=== PATIENT | female | born 1950 | race Caucasian/White ===

== ENCOUNTER 2023-03-29 13:03 | Emergency (ER) | payer MEDICARE, SELFPAY ==
[2023-03-29 13:13] VITALS: BP 125/70; PULSE 82; RESP 16; TEMP 35.9; O2SAT 96
--- NOTE | 2023-03-29 13:21 | ED.GENADULT ---
HPI - General Adult General Chief complaint: Dizziness Stated complaint: Dizziness/Diarrhea Source: patient and RN notes reviewed History of Present Illness HPI narrative: 73 yo F presents to urgent care with multiple medical complaints. Pt states she has had multiple BMs today, denies diarrhea, but reports frequent BMs today. Pt reports being depressed and possibly anxious due to an upcoming move in April. Pt states she has lived in the same place for 50 yrs but has to move. Pt also stating she woke up with dizziness this morning. Pt reports hx of vertigo but denies any ear pain or ringing today. Pt states she has been more tired than normal but contributes that to the depression. Pt also states she has had multiple tick bites, the last tick she pulled off of her was last week. Pt denies any vomiting, abdominal pain, chest pain, SOB, fevers, chills, dysuria, back pain, ROJO, numbness, tingling. Denies any falls or near syncope. Related Data Home Medications Medication Instructions Recorded Confirmed lisinopril 10 mg tablet 10 mg PO DAILY 03/29/23 03/29/23 pantoprazole 40 mg tablet,delayed 40 mg PO DAILY 03/29/23 03/29/23 release simvastatin 10 mg tablet 10 mg PO DAILY 03/29/23 03/29/23 Allergies Allergy/AdvReac Type Severity Reaction Status Date / Time No Known Allergies Allergy Verified 03/29/23 13:33 Review of Systems Review of Systems: Pertinent positives and pertinent negatives per HPI. PMFSH Comments At the time of my signature, I reviewed and agree with the nursing past medical, surgical, social, and family history. There is no relevant family history pertinent to the patient complaint. Exam Narrative: GENERAL: This is a well-nourished, well-developed patient, in no apparent distress. HEAD: normocephalic, atraumatic. EYES: Sclera clear/white. Vision is grossly intact. EARS: External ears normal, auditory canals clear and without drainage, TMs normal without perforation. Hearing grossly intact. NOSE: External nose normal with no obvious nasal discharge, nares without redness, no rhinorrhea. THROAT: Mucous membranes moist, posterior pharynx clear. NECK: Neck supple, non-tender without lymphadenopathy, masses or thyromegaly. CARDIOVASCULAR: Regular rate and rhythm without murmurs, gallops, or rubs. RESPIRATORY: Clear to auscultation. Breath sounds equal bilaterally. No wheezes, rales, or rhonchi. GASTROINTESTINAL: Abdomen soft, non-tender, nondistended. Bowel sounds are active. No hepato-splenomegaly, or palpable masses. No guarding. SKIN: light erythemic dots noted to where pt has pulled ticks off in the last month. No rashes or significant erythema noted. NEURO: awake, alert, and oriented to person, place and time. There were no obvious focal neurologic abnormalities. Course Course Level of Care: Express Care Visit Vital Signs Vital signs: Vital Signs Temperature 96.7 F L 03/29/23 13:13 Pulse Rate 82 03/29/23 13:13 Respiratory Rate 16 03/29/23 13:13 Blood Pressure 125/70 03/29/23 13:13 Pulse Oximetry 96 03/29/23 13:13 Oxygen Delivery Room Air 03/29/23 13:13 Temperature 96.7 F L 03/29/23 13:13 Pulse Rate 82 03/29/23 13:13 Respiratory Rate 16 03/29/23 13:13 Blood Pressure 125/70 03/29/23 13:13 Pulse Oximetry 96 03/29/23 13:13 Oxygen Delivery Room Air 03/29/23 13:13 Reviewed Medical Decision Making MDM Narrative Medical decision making narrative: Pt took one of her meclizine pills in clinic with good relief. Pt stated 15 minutes later that she is no longer dizzy. We will send a urine culture off to the lab; if the culture identifies an organism that the prescribed antibiotic will not treat, you will receive a phone call from an urgent care staff member and an appropriate antibiotic will be prescribed. -Your symptoms should begin to improve within a day of starting antibiotics. But you should finish all the antibiotic pills you get. Otherwis
--- NOTE | 2023-03-29 14:35 | PC.NURSE ---
noted pt previously took meclizine from home during stay, as instructed by provider
== END 2023-03-29 14:15 | disposition home or self-care (01) ==
PROVIDERS: Emergency Provider Nurse Practitioner Family
DX: R42 Dizziness and giddiness (principal); B95.62 Methicillin resistant Staphylococcus aureus infection as the cause of diseases classified elsewhere; N39.0 Urinary tract infection, site not specified
CPT/HCPCS: 81003; 87086; 87147; 87186; 99213; G0463

== ENCOUNTER 2023-06-17 12:58 | Emergency (ER) | payer MEDICARE, SELFPAY ==
[2023-06-17 13:08] VITALS: BP 143/74; PULSE 86; RESP 20; TEMP 36.7; O2SAT 98
[2023-06-17 13:17] VITALS: BP 143/74; PULSE 86; RESP 20; TEMP 36.7; O2SAT 98
--- NOTE | 2023-06-17 13:23 | ED.SKABFB ---
HPI - Skin/Abscess/Foreign Bdy General Chief complaint: Skin/Abscess/Foreign Body Stated complaint: rash Source: patient Mode of arrival: ambulatory Limitations: no limitations History of Present Illness HPI narrative: 73-year-old female presents to [facility] complaint of erythematous itchy rash to her back, chest and bilateral arms for the past 2 weeks. Patient reports that her rash started when she was visiting family in [place] and sleeping on a mattress from a camper. Patient reports that no one else in the family has a rash but her dog also has been itching and he also slept on the mattress. Patient reports that she use [id number] hydrocortisone cream with little relief. Patient denies shortness of breath, wheezing, trouble swallowing or difficulty breathing. Patient denies new medications, new soaps or lotions MD complaint: rash Onset (ago): week(s) (2) Location: back, LUE and RUE Quality: pruritic Relieving factors: none Exacerbating factors: none Associated symptoms: denies other symptoms Treatments prior to arrival: OTC topical medication Related Data Home Medications Medication Instructions Recorded Confirmed lisinopril 10 mg tablet 10 mg PO DAILY 03/29/23 06/17/23 pantoprazole 40 mg tablet,delayed 40 mg PO DAILY 03/29/23 06/17/23 release simvastatin 10 mg tablet 10 mg PO DAILY 03/29/23 06/17/23 Allergies Allergy/AdvReac Type Severity Reaction Status Date / Time codeine Allergy Rash Verified 06/17/23 13:17 Sulfa (Sulfonamide Allergy Rash Verified 06/17/23 13:17 Antibiotics) Review of Systems Constitutional: Constitutional: Denies chills, Denies fatigue, Denies fever(s) and Denies weakness ENT: Denies dizziness Cardiovascular: Cardiovascular: Denies chest pain Respiratory: Respiratory: Denies cough, Denies dyspnea and Denies wheezing Gastrointestinal: Gastrointestinal: Denies heartburn, Denies diarrhea, Denies nausea and Denies vomiting Integumentary/Breasts: Skin/Breast: Reports pruritus, Denies erythema, Reports rash and Denies skin ulcer PMFSH Comments At time of signature, I agree with nursing past medical, surgical, social and family history. There is no relevant family history pertinent to the presenting complaint. Exam Const: General: healthy appearing and no acute distress Nutritional Appearance: well nourished Orientation/consciousness: patient oriented x3 Limitations: no limitations HENMT: Head: normal to inspection Eyes: Conjunctivae: conjunctivae normal Neck: Neck: normal visual inspection Resp: Effort & Inspection: normal respiratory effort and not labored Auscultation: clear to auscultation bilaterally, no crackles, no rales, no rhonchi and no wheezes Cardio: Rate: regular rate Rhythm: regular rhythm Skin: General skin exam: normal color Wounds: no wounds Other: Moderate erythematous macular papular raised rash noted to bilateral arms, back and chest likely representing a mite type of rash. No streaking erythema, open wounds or signs of infection noted. Neuro: Speech: normal speech Gait exam (Neuro): Normal gait present Extrem: General: normal to inspection Psych: Affect: normal affect Attitude: cooperative Course Course Level of Care: Express Care Visit Vital Signs Vital signs: Vital Signs Temperature 36.7 C 06/17/23 13:08 Pulse Rate 86 06/17/23 13:08 Respiratory Rate 20 06/17/23 13:08 Blood Pressure 143/74 H 06/17/23 13:08 Pulse Oximetry 98 06/17/23 13:08 Oxygen Delivery Room Air 06/17/23 13:08 Temperature 36.7 C 06/17/23 13:17 Pulse Rate 86 06/17/23 13:17 Respiratory Rate 20 06/17/23 13:17 Blood Pressure 143/74 H 06/17/23 13:17 Pulse Oximetry 98 06/17/23 13:17 Oxygen Delivery Room Air 06/17/23 13:17 MDM - Skin/Abscess/Foreign Bdy MDM Narrative Medical decision making narrative: Patient agrees to use permethrin cream 1st to ensure that is not a scabies type rash. Patient
== END 2023-06-17 13:31 | disposition home or self-care (01) ==
PROVIDERS: Emergency Provider Nurse Practitioner Family
DX: R21 Rash and other nonspecific skin eruption (principal); E78.00 Pure hypercholesterolemia, unspecified; I10 Essential (primary) hypertension; K21.9 Gastro-esophageal reflux disease without esophagitis
CPT/HCPCS: 99213; G0463